=== PATIENT | female | born 1955 | race African-American/Black ===

== ENCOUNTER → 2019-05-07 13:09 | Outpatient (CLI) | payer OTHER ==
[2010-10-23 23:52] VITALS: BMI 36.6
--- NOTE | 2019-05-07 14:40 | NUR ---
TIME OUT PERFORMED @ [address] BROWN & CAROLYN GRISSOM RTR. PATIENT, , & PROCEDURE VERIFIED
== END | disposition home or self-care (01) ==
LOC: D.RAD 13:09 → D.CT 15:00
PROVIDERS: ATTEND Family Medicine
DX: M54.16 Radiculopathy, lumbar region (principal)

== ENCOUNTER → 2019-05-10 14:40 | Outpatient (CLI) | payer OTHER ==
[2010-10-23 23:52] VITALS: BMI 36.6
== END | disposition home or self-care (01) ==
LOC: D.MRI 14:40
PROVIDERS: ATTEND Family Medicine
DX: M54.16 Radiculopathy, lumbar region (principal)

== ENCOUNTER → 2019-06-08 16:07 | Outpatient (CLI) | payer OTHER ==
[2010-10-23 23:52] VITALS: BMI 36.6
[2019-06-08 16:57] LABS: HEMATOCRIT 36.7 % (36.0-48.0); HEMOGLOBIN 11.5 g/dL (12-16); MCH 26.6 pg (26.0-34.0); MCHC 31.3 g/dL (31.0-37.0); MCV 84.8 fL (80.0-100.0); MEAN PLATELET VOLUME 10.1 fL (7.4-10.4); RBC 4.33 10x6/uL (4.00-5.40); RDW 14.9 % (11.5-14.5); WBC 5.3 10x3/uL (4.8-10.8)
[2019-06-08 17:01] LABS: APTT 27.8 SECONDS (22.8-39.4); INR 0.88 (0.85-1.17); PROTIME 11.9 SECONDS (11.6-15.0)
[2019-06-08 17:04] LABS: ANION GAP 10.5 mmol/L (8-16); CALCIUM 8.8 mg/dL (8.5-10.1); CARBON DIOXIDE 29.9 mmol/L (21.0-32.0); CREATININE - SERUM 1.1 mg/dL (0.6-1.3); POTASSIUM - SERUM 4.4 mmol/L (3.5-5.1)
== END | disposition home or self-care (01) ==
LOC: D.LAB 16:07
PROVIDERS: ATTEND Family Medicine
DX: Z01.89 Encounter for other specified special examinations (principal)